=== PATIENT | female | born 1995 | race African-American/Black ===

== ENCOUNTER 2016-12-25 03:09 | Emergency (ER) | payer BC, OTHER ==
[2016-12-25] MEDS ORDERED: NO HOME MEDICATION (03:19)
[2016-12-25] MEDS ORDERED: HYDROCODON-ACE1 EA16 PO (04:55)
== END 2016-12-25 05:15 ==
LOC: EDMED 03:09
PROC: 2W3QX1Z Immobilization of Right Lower Leg using Splint (ICD-10-PCS; principal; 2016-12-25)
DX: S86.011A Strain of right Achilles tendon, initial encounter (principal); X58.XXXA Exposure to other specified factors, initial encounter; Y93.89 Activity, other specified; Y92.89 Other specified places as the place of occurrence of the external cause; Y99.8 Other external cause status
CPT/HCPCS: J1885

== ENCOUNTER 2017-01-21 12:11 | Emergency (ER) | payer BC, OTHER ==
[~2017-01-21 12:11] MED LIST: HYDROCODON-ACE1 EA16 PO; NO HOME MEDICATION
== END 2017-01-21 13:39 ==
LOC: EDMED 12:11
PROC: 2W3TX1Z Immobilization of Left Foot using Splint (ICD-10-PCS; principal; 2017-01-21)
DX: S86.012A Strain of left Achilles tendon, initial encounter (principal); W17.89XA Other fall from one level to another, initial encounter

== ENCOUNTER 2017-02-08 15:10 | Emergency (ER) | payer BC, OTHER ==
[2017-02-08] MEDS ORDERED: HYDROCODON-ACE1 EA16 PO (15:23)
[2017-02-08 15:57] LABS: BASO % 0.4 % (0-2); EOS % 1.8 % (0-7); EOSINOPHIL ABSOLUTE COUNT 0.1 tho/cmm (0.0-0.7); HCT-HEMATOCRIT 33.7 % (34.0-49.0); HGB-HEMOGLOBIN 11.4 gm/dl (12.0-15.5); LYMPH % 54.7 % (20-45); LYMPH ABSOLUTE COUNT 2.5 tho/cmm (0.8-4.5); MCH (MEAN CORPUSCULAR HGB) 28.4 pg (28.0-32.0); MCHC MEAN CORPUSCULAR HGB CONC 33.8 % (32.0-36.0); MEAN PLATELET VOLUME 10.3 cmc (9.4-12.4); MONO % 3.1 % (0-12); MONOCYTE ABSOLUTE COUNT 0.1 tho/cmm (0.0-1.2); NEUTROPHIL ABSOLUTE COUNT 1.8 tho/cmm (1.6-8.0); NEUTROPHIL-AUTOMATED 1.8 tho/cmm (1.6-8.0); PLATELET COUNT 184 tho/cmm (150-450); RED BLOOD COUNT 4.01 mil/cmm (4.00-5.20); RED CELL DISTRIBUTION WIDTH 14.6 % (12.4-16.4); WHITE BLOOD COUNT 4.5 tho/cmm (4.0-10.0)
[2017-02-08 16:20] LABS: ANION GAP 12 mmol/L (0-20); BLOOD UREA NITROGEN 11 mg/dl (6-24); CALCIUM 8.1 mg/dl (8.5-10.5); CARBON DIOXIDE-VENOUS 25 mmol/L (22-32); CHLORIDE 110 mmol/l (96-110); CREATININE 0.93 mg/dl (0.50-1.10); SODIUM 143 mmol/L (135-145); eGFR VALUE FOR BLACK >90 mL/Min
[2017-02-08 16:26] LABS: GLUCOSE 70 mg/dL (70-110)
== END 2017-02-08 17:52 ==
LOC: EDMED 15:10
PROVIDERS: Emergency Medicine
DX: R06.00 Dyspnea, unspecified (principal); R42 Dizziness and giddiness
CPT/HCPCS: J7030; Q9967